=== PATIENT | female | born 1995 | race Two or more races ===

== ENCOUNTER 2025-02-08 18:45 | Observation (INO) | payer OTHER, SELFPAY ==
[2025-02-08] VITALS (14 sets, daily range): BP systolic 106–110; BP diastolic 55–62; PULSE 90–101; RESP 18–96; TEMP 36.6; O2SAT 92–97; BMI 32.6
[2025-02-08 19:50] LABS: ROM Kit Lot # 57807112
[2025-02-08 19:52] LABS: ROM Swab Mixed By: KE; Rupture of Fetal Membranes Negative (Negative); Swb Mxed in Solvent 1 min? Yes
== END 2025-02-08 20:10 | disposition home or self-care (01) ==
PROVIDERS: Admitting Provider Obstetrics & Gynecology; Visit Provider Obstetrics & Gynecology
DX: O36.8130 Decreased fetal movements, third trimester, not applicable or unspecified (principal); Z3A.32 32 weeks gestation of pregnancy; O26.893 Other specified pregnancy related conditions, third trimester; R25.2 Cramp and spasm
CPT/HCPCS: 59025; 59899; 84112; G0378

== ENCOUNTER 2025-03-28 10:06 | Inpatient (IN) | payer OTHER, SELFPAY ==
[2025-03-28] VITALS (25 sets, daily range): BP systolic 94–119; BP diastolic 57–83; PULSE 77–101; RESP 13–20; TEMP 36.4–36.8; O2SAT 93–99; BMI 33.9
[2025-03-28] MEDS: RINGERS LACTATED 1000 ML 1,000 ML 100 ML IV ×2 (11:20→12:15)
[2025-03-28 12:16] LABS: Basophils % (Auto) 0 % (0-2.5); Eosinophils % (Auto) 0 % (0-10); Hematocrit 35.1 % (36.0-46.0); Hemoglobin 11.4 g/dL (12.0-16.0); Immature Granulocytes % (Auto) 1 % (0-0); Immature Granulocytes Auto 0.08 Thou/mm3 (0.00-0.00); Lymphocytes # (Auto) 1.3 Thou/mm3 (1.0-4.8); Lymphocytes % (Auto) 14 % (10-50); Mean Corpuscular HGB Conc 32.5 g/dl (31.0-37.0); Mean Corpuscular Hemoglobin 29.2 pg (25.0-35.0); Mean Corpuscular Volume 90 fL (80-100); Monocytes # (Auto) 0.6 Thou/mm3 (0.0-0.8); Monocytes % (Auto) 6 % (0-12); Neutrophils # (Auto) 7.3 Thou/mm3 (1.8-7.7); Neutrophils % (Auto) 78 % (37-80); Nucleated Red Blood Cell % 0 /100 WBC (0); Platelet Count 185 Thou/mm3 (140-440); RDW Standard Deviation 51.2 fL (36.4-46.3); Red Blood Count 3.91 Miln/mm3 (4.00-5.20); White Blood Count 9.4 Thou/mm3 (3.6-11.0)
[2025-03-28] MEDS: ceFAZolin/D5W 2 GM IV 2 GM/100 ML BAG IV (12:16)
[2025-03-28] MEDS: FAMOTIDINE INJ 10 MG/ML VIAL 2 ML 20 MG IV (12:16)
[2025-03-28] MEDS: CITRIC ACID/SODIUM CITR 15 ML UDC (BICITRA) 30 ML PO (12:16)
--- NOTE | 2025-03-28 12:42 | PD.LDHP ---
Documentation for date of: 03/28/25 OB Labor/Induct. HPI History of Present Illness Date of last menstrual period: 06/28/24 NATHEN: 04/04/25 Gestational age based on last menstrual period: 39 History of present illness: 29-year-old 2 para 1-0-0-1 at 39 weeks is admitted for repeat low-transverse . Patient had a previous x 1 for failure to progress (patient states she was pushing before the declared failed labor )at 42 weeks and last . Current has been uneventful. No contractions, leaking, bleeding History of Present Dating criteria: LMP confirmed by 2nd trimester US Abnormal ultrasound findings: 17-week scan correlating with LMP Normal nuchal translucency Normal anatomy scan anterior placenta low suspicion of PAS Labs Labs: Positive: Rubella Titre, Negative: RPR, Hepatitis B, HIV, Chlamydia and Gonorrhea and Unknown: Herpes Type 1, Herpes Type 2, Group Beta Strep and Covid-19 Narrative: GTT normal Meds Home Medications and Allergies Home Medications ?Medication ?Instructions ?Recorded ?Confirmed ?Type folic acid 1 mg tablet 1 mg PO QDAY 02/08/25 03/28/25 History Held on 03/28/25. Instructions: Order Change vits no.130-ferrous fum 1 tab PO QDAY 02/08/25 03/28/25 History 27 mg iron-folic acid 800 mcg tablet ( Vitamin) loratadine 10 mg capsule (Allergy 10 mg PO QDAY 03/28/25 03/28/25 History Relief (loratadine)) Allergies Allergy/AdvReac Type Severity Reaction Status Date / Time shrimp Allergy Verified 03/28/25 12:11 OB Exam Physical Exam Vital signs: Pulse BP Pulse Ox 88 113/60 97 03/28/25 11:27 03/28/25 11:27 03/28/25 12:31 Constitutional Constitutional: no acute distress Routine HEENT Exam Head: Present normocephalic and atraumatic Eye: Present EOMI and PERRL ENT: Present mucous membranes moist Routine Neck Exam Neck: Present supple and trachea midline Routine Cardiovascular Exam Cardiovascular: Present RRR Routine Abdominal Exam Abdominal: Present soft and normoactive bowel sounds Routine Extremities Exam Extremities: Present full ROM Routine Skin Exam Skin: Present intact, dry and warm Routine Neurological Exam Neurological: Present alert, oriented X3 and CN II-XII intact Routine Psychiatric Exam Psychiatric: Present normal affect and normal thought process OB Results Labs 03/28/25 11:48 Labs: Short CBC 03/28/25 Range/Units 11:48 WBC 9.4 (3.6-11.0) Thou/mm3 Hgb 11.4 L (12.0-16.0) g/dL Hct 35.1 L (36.0-46.0) % Plt Count 185 (140-440) Thou/mm3 Impressions Impression: 29-year-old -0-0-1 at 39 weeks admitted for repeat low-transverse Hemoglobin 11.4 Previous x 1, failed to progress with second stage Ultrasound normal anatomy, anterior placenta, no PAS OB Assessment & Plan Additional Plan Additional Plan Comment: Boarded for repeat low-transverse Neuraxial anesthesia DVT prophylaxis Antibiotic prophylaxis
[2025-03-28 12:46] LABS: Syphilis Nonreactive (Nonreactive)
[2025-03-28] MEDS: KETOROLAC INJ 30 MG/ML VIAL IVP (14:22)
[2025-03-28] MEDS: OXYTOCIN in NS 20 units 20 UNIT/1,000 ML BAG 125 UNIT IV (15:45)
[2025-03-28 18:25] LABS: Basophils % (Auto) 0 % (0-2.5); Eosinophils % (Auto) 0 % (0-10); Hematocrit 33.7 % (36.0-46.0); Immature Granulocytes % (Auto) 0 % (0-0); Immature Granulocytes Auto 0.05 Thou/mm3 (0.00-0.00); Lymphocytes # (Auto) 0.7 Thou/mm3 (1.0-4.8); Lymphocytes % (Auto) 5 % (10-50); Mean Corpuscular HGB Conc 32.6 g/dl (31.0-37.0); Mean Corpuscular Hemoglobin 29.6 pg (25.0-35.0); Mean Corpuscular Volume 91 fL (80-100); Monocytes # (Auto) 0.2 Thou/mm3 (0.0-0.8); Monocytes % (Auto) 1 % (0-12); Neutrophils % (Auto) 93 % (37-80); Nucleated Red Blood Cell % 0 /100 WBC (0); Platelet Count 190 Thou/mm3 (140-440); RDW Standard Deviation 50.4 fL (36.4-46.3); Red Blood Count 3.72 Miln/mm3 (4.00-5.20); White Blood Count 12.9 Thou/mm3 (3.6-11.0)
--- NOTE | 2025-03-28 21:51 | PD.GYNPROC ---
Operative Note - CLASSROOM PARAPROFESSIONAL Procedure Date of procedure: 03/28/25 Procedure Performed: repeat low transverse Csection Indication: previous Csection x1 Pre-Op diagnosis: same Post-Op diagnosis: same Anesthesia type: Spinal Procedure description: Informed consent was obtained and the patient was taken to the operating room.? Identity was confirmed by double identifiers and she was placed on the operating table.The abdomen and perineum were prepped in the usual sterile fashion and a Díaz catheter was placed to continuous drainage.? Sterile drapes were applied.??A Pfannenstiel skin incision was made with a scalpel and carried to the subcutaneous fat up to the rectus fascia.? The rectus fascia was incised on either side of the midline and the incisions were extended bilaterally.? The fascia was gently dissected off the ventral surface of the rectus muscle both superiorly and inferiorly. extensive adhesiolysis was done between musle , peritoneum. bladder flap carefully created, then hysterotomy incision made and extended bluntly with finger. placenta edge was Rupture of membranes revealed clear fluid. The baby was found vertex presentation and was delivered via vertex. Nuchal cord x 1, seen the umbilical cord , was doubly clamped, divided and the infant was handed over to the waiting team. The placenta delivered by controlled cord traction . The interior of the uterus was now thorougly cleaned of all blood and debris and membranes.?The? hysterotomy was closed using 0 vicryl suture in double layers. Once the repair was completed the hysterotomy was inspected, was noted to be adequately hemostatic. Then the rectus fascia was repaired using Vicryl 0 in a running fashion.? The subcutaneous layer was now, approximated with 3-0 vicryl in double layers.? All bleeding points were cauterized using the Bovie.?The skin was closed using 4-0 Monocryl in a subcuticular fashion.? The skin was cleaned and a sterile dressing was applied. The patient was now undraped, the abdomen and back were thoroughly cleaned and she was now transferred to the recovery room in a stable Estimated blood loss (ml): 400 Complications: none Surgical staff Operation Date: 03/28/25 12:45 Case Staff CHANNEL PROCESS SUPERVISOR: Kaushik Underwood RNpromos executive producer: Anne Marie Fabian Diagnosis Problem List Completed Was Problem List Reviewed/Reconciled?: Yes
--- NOTE | 2025-03-28 21:55 | PD.LDDELS ---
Data (Sharp) Data : 2 Delivery Data (Sharp) Labor Data Induction/Augmentation Agent: None ROM date: 03/28/25 ROM time: 13:09 Amniotic membrane rupture type: Artificial Amniotic fluid description: Blood Tinged Delivery Data Onset of labor date: 03/28/25 Onset of labor time: 13:09 [place] delivery date: 03/28/25 [place] delivery time: 13:10 Gestational age (weeks): 39 Placenta delivery date: 03/28/25 Placenta delivery time: 13:11 Delivered by: Dr. Rodriguez Delivery nurse: Karyn Holt RN [place] nurse: Beverly Rojas Orthotic Practitioner at delivery: Yes Support person(s) at delivery: FOJoselito Other staff at delivery: LIVIA MCKEON, VIRGIL WEBER Delivery Method Delivery method: Low Transverse Presentation: Vertex Anesthesia Type Anesthesia Type: None Anesthesia type: Spinal Placenta Placenta delivery description: Manual Removal Cord blood sent to lab: Yes cord blood collection: Cord Blood Type Episiotomy Episiotomy description: None EBL Estimated blood loss (ml): 400 Umbilical Cord cord description: 3 Vessels Data (Sharp) Data order: 1 [place]'s gender: Male Identification band number: [id number] weight (gms): 3950 g Weight (pounds): 8 lbs and 11.3 ozs 1 minute: 9 5 minutes: 9
[2025-03-29 01:36] VITALS: BP 95/59; PULSE 93; RESP 14; TEMP 36.8; O2SAT 96
[2025-03-29] MEDS: IBUPROFEN TAB 400 MG TABLET 800 MG PO ×3 (01:48→18:28)
[2025-03-29] MEDS: OXYTOCIN in NS 20 units 20 UNIT/1,000 ML BAG 125 UNIT IV (01:49)
[2025-03-29 05:01] VITALS: BP 102/64; PULSE 81; RESP 18; TEMP 36.8; O2SAT 96
[2025-03-29 08:13] VITALS: BP 99/62; PULSE 81; RESP 20; TEMP 37; O2SAT 99
--- NOTE | 2025-03-29 09:41 | PC.NURSE ---
0939- Hota notified pt has not been able to void after POP fluids, has been 7 hours. Per MD perform straight cath x1.
--- NOTE | 2025-03-29 09:59 | PC.NURSE ---
Jennifer GATES notified pt voided 200mL, no need for straight cath
[2025-03-29 12:50] VITALS: BP 99/59; PULSE 87; RESP 18; TEMP 36.7; O2SAT 99
[2025-03-29 17:20] VITALS: BP 98/65; PULSE 94; RESP 17; TEMP 36.8; O2SAT 97
--- NOTE | 2025-03-29 17:20 | ESPR_ITS ---
Subjective Subjective Interval history: patient is doing well, denied any nausea, vomiting, fever . No vaginal bleeding. Exam Vital Signs Temp Pulse Resp BP Pulse Ox O2 Del Method 98.0 F 87 18 99/59 L 99 Room Air 03/29/25 12:50 03/29/25 12:50 03/29/25 12:50 03/29/25 12:50 03/29/25 12:50 03/29/25 12:50 Constitutional Constitutional: no acute distress Routine HEENT Exam Head: Present normocephalic and atraumatic Eye: Present EOMI and PERRL ENT: Present mucous membranes moist Routine Neck Exam Neck: Present supple and trachea midline Routine Respiratory Exam Respiratory: Present chest non-tender, lungs clear, normal breath sounds and no resp distress Routine Cardiovascular Exam Cardiovascular: Present RRR Routine Abdominal Exam Abdominal: Present soft and normoactive bowel sounds Routine Extremities Exam Extremities: Present full ROM Routine Skin Exam Skin: Present intact, dry and warm Routine Neurological Exam Neurological: Present alert, oriented X3 and CN II-XII intact Routine Psychiatric Exam Psychiatric: Present normal affect and normal thought process Objective Labs 03/28/25 18:05 Labs: Laboratory Results - last 24 hr 03/28/25 18:05 WBC 12.9 H RBC 3.72 L Hgb 11.0 L Hct 33.7 L MCV 91 MCH 29.6 MCHC 32.6 RDW Std Deviation 50.4 H Plt Count 190 Neut % (Auto) 93 H Lymph % (Auto) 5 L [place] % (Auto) 1 Eos % (Auto) 0 Baso % (Auto) 0 Neut # (Auto) 12.0 H Lymph # (Auto) 0.7 L [place] # (Auto) 0.2 Eos # (Auto) 0.0 Baso # (Auto) 0.0 Immature Gran # (Auto) 0.05 H Absolute Nucleated RBC 0.00 Immature Gran % 0 Nucleated RBC % 0 Assessment & Plan Assessment Comment Assessment comment: 29 y/o p2, s/p RLTCS , POD#1 VSS No bleedng , meeting all PO milestone s Plan Comment Plan Comment: anticipate dischareg tomorrow continue PO care Time Spent With Patient Time: Total time spent is greater than 50% in coordination of care (as documented) at patient's floor/unit and/or counseling patient:
[2025-03-29 19:45] VITALS: BP 99/67; PULSE 92; RESP 18; TEMP 36.7; O2SAT 97
[2025-03-29] MEDS: ACETAMINOPHEN 325 MG TABLET 650 MG PO (20:46)
[2025-03-29] MEDS: SIMETHICONE 80 MG CHEW PO (21:20)
[2025-03-30 00:35] VITALS: BP 104/69; PULSE 78; RESP 16; TEMP 36.4; O2SAT 98
[2025-03-30] MEDS: ACETAMINOPHEN 325 MG TABLET 650 MG PO ×2 (03:29→08:48)
[2025-03-30] MEDS: IBUPROFEN TAB 400 MG TABLET 800 MG PO ×2 (03:29→12:18)
[2025-03-30 05:00] VITALS: BP 105/65; PULSE 78; RESP 18; TEMP 36.8; O2SAT 97
[2025-03-30 08:30] VITALS: BP 101/64; PULSE 82; RESP 18; TEMP 37.1; O2SAT 97
--- NOTE | 2025-03-30 10:19 | PD.LDDS ---
DS: Providers Provider Date of admission: 03/28/25 10:06 Primary care physician: Physician No Primary/Family Admitting Provider: Fatoumata Rodriguez MD Attending Provider on Admission: Fatoumata Rodriguez MD Consults: 03/28/25 12:45 Referral Routine Comment: Attending Provider on DC: Fatoumata Rodriguez MD Discharging Provider: Fatoumata Rodriguez MD DS: Diagnosis Problem List Completed Was Problem List Reviewed/Reconciled?: Yes Summary/Hosp Course Brief History: 29-year-old 2 para2 , s/p repeat low-transverse at 39 weeks has been admitted for 2 days. Has met all postop milestones including ambulation, passing gas, voiding herself, tolerating oral diet Peripartum Data Delivery Method: Low Transverse Episiotomy Description: None Procedures: Procedures Operation Date: 03/28/25 12:45 Actual Procedure Side Surgeon p in OB Bilateral Fatoumata Rodriguez MD Status at Discharge Cognitive/behavioral status at discharge: Stable Time Spent with Patient Time attestation: Total time spent providing and/or coordinating discharge services: Exam Vital Signs Temp Pulse Resp BP Pulse Ox O2 Del Method 98.2 F 78 18 105/65 97 Room Air 03/30/25 05:00 03/30/25 05:00 03/30/25 05:00 03/30/25 05:00 03/30/25 05:00 03/30/25 05:00 Discharge Plan Plan Patient Disposition: HOME (Self Care) Prescriptions/Referrals Prescriptions/Med Rec: New acetaminophen-codeine 300-15 mg tablet 1 tab PO Q12H PRN (Reason: pain) Qty: 20 0RF ibuprofen 800 mg tablet 800 mg PO Q8H PRN (Reason: pain) Qty: 20 0RF No Action Allergy Relief (loratadine) 10 mg capsule 10 mg PO QDAY folic acid 1 mg tablet 1 mg PO QDAY Patient Comments: TAKE 1 TABLET BY MOUTH EVERY DAY Vitamin 27 mg iron- 800 mcg tablet 1 tab PO QDAY Patient Comments: TAKE 1 TABLET BY MOUTH EVERY DAY Referrals: No Primary/Family,Physician [Primary Care Provider] - Patient/Caregiver Discharge Instructions Education Materials: C Section Dc Print Language: Hungarian Stand Alone Forms: Alexandra Award Info., Patient Portal Info Letter Discharge Order Discharge Orders: Discharge (Routine); Ordered 03/30/25 Ordered By: Fatoumata Rodriguez Planned Discharge Date 03/30/25
== END 2025-03-30 13:45 | disposition home or self-care (01) | DRG 788 ==
LOC: S4SX 10:15 → S4NX 12:56
PROVIDERS: Admitting Provider Student in an Organized Health Care Education/Training Program; Visit Provider Student in an Organized Health Care Education/Training Program
PROC: 10D00Z1 Extraction of Products of Conception, Low, Open Approach (ICD-10-PCS; CPT 59514; principal; 2025-03-28 12:30)
DX: O34.211 Maternal care for low transverse scar from previous cesarean delivery (principal); Z37.0 Single live birth; Z3A.39 39 weeks gestation of pregnancy; O62.2 Other uterine inertia; O69.81X0 Labor and delivery complicated by cord around neck, without compression, not applicable or unspecified
CPT/HCPCS: 36415; 59409; 85025; 86780; 86850; 86900; 86901; 94762; A4314; A4649; J0689; J1100; J1885; J2250; J2274; J2405; J2590; J3490; J7120; A9270; J2270